=== PATIENT | male | born 1950 | race African-American/Black ===

== ENCOUNTER 2019-12-18 00:37 | Emergency (ER) | payer OTHER ==
[~2019-12-18] VITALS: Ht 188 cm; Wt 136.1 kg
[2019-12-18] MEDS ORDERED: FLOMAX0.4 MG PO (00:46)
[2019-12-18] MEDS ORDERED: ULORIC40 MG PO (00:46)
[2019-12-18] MEDS ORDERED: IBUPROFEN 800800 M1 PO (00:47)
[2019-12-18] MEDS ORDERED: COZAAR 25 MG TA25 M1 PO (00:47)
[2019-12-18] MEDS ORDERED: ALLOPURINOL 10100 M3 PO (00:47)
[2019-12-18] MEDS ORDERED: EXCEDRIN MIGRA1 EAC1 PO (00:48)
[2019-12-18] MEDS ORDERED: ST. JOSEPH ASPI81 MG PO (00:48)
[2019-12-18 03:08] VITALS: BP 163/86
== END 2019-12-18 03:30 | disposition home or self-care (01) ==
LOC: ER 00:37
DX: R04.0 Epistaxis (principal); I10 Essential (primary) hypertension; M10.9 Gout, unspecified; Z79.82 Long term (current) use of aspirin; Z79.899 Other long term (current) drug therapy

== ENCOUNTER 2019-12-18 10:26 | Emergency (ER) | payer OTHER ==
[~2019-12-18] VITALS: Ht 188 cm; Wt 136.1 kg
[~2019-12-18 10:26] MED LIST: ALLOPURINOL 10100 M3 PO; COZAAR 25 MG TA25 M1 PO; EXCEDRIN MIGRA1 EAC1 PO; FLOMAX0.4 MG PO; IBUPROFEN 800800 M1 PO; ST. JOSEPH ASPI81 MG PO; ULORIC40 MG PO
[2019-12-18 14:41] VITALS: BP 192/107
== END 2019-12-18 14:42 | disposition home or self-care (01) ==
LOC: ER 10:26
DX: R04.0 Epistaxis (principal); I10 Essential (primary) hypertension; M10.9 Gout, unspecified; Z79.82 Long term (current) use of aspirin; Z79.899 Other long term (current) drug therapy

== ENCOUNTER 2019-12-26 01:36 | Emergency (ER) | payer OTHER ==
[~2019-12-26] VITALS: Ht 182.9 cm; Wt 122.5 kg
[2019-12-26 02:59] LABS: ABSOLUTE NEUTROPHILS 6.5 thou/uL (1.4-8.2); EOSINOPHILS 2.3 % (0.0-3.0); HEMATOCRIT 37.1 % (42.0-52.0); HEMOGLOBIN 12.3 gm/dL (14.0-18.0); LYMPHOCYTES 24.6 % (24.0-44.0); MCV 90.8 fL (80.0-100.0); MONOCYTES 5.8 % (1.0-8.0); PLATELET COUNT 294 thou/uL (150-400); POLYS 66.3 % (36.0-66.0); RBC 4.09 mil/uL (4.50-6.00); RDW 13.6 % (10.5-14.5); WBC 9.8 thou/uL (4.0-11.0)
[2019-12-26] MEDS ORDERED: AUGMENTIN 875-1 EACH PO (04:55)
[2019-12-26 05:07] VITALS: BP 170/92
== END 2019-12-26 05:08 | disposition home or self-care (01) ==
LOC: ER 01:36
PROVIDERS: Emergency Medicine
DX: R04.0 Epistaxis (principal); I10 Essential (primary) hypertension; M10.9 Gout, unspecified; Z79.82 Long term (current) use of aspirin; Z79.899 Other long term (current) drug therapy